=== PATIENT | female | born 1965 | race Caucasian/White ===

== ENCOUNTER 2024-06-28 09:35 | Emergency (ER) | payer BC, OTHER ==
[~2024-06-28] VITALS: Ht 165.1 cm; Wt 96.9 kg
[2024-06-28 11:42] VITALS: BP 159/61; TEMP 96; O2SAT 98
[2024-06-28 11:59] LABS: KETONE, URINE AUTO RFX NEGATIVE (NEGATIVE); LEUKOCYTE ESTERASE UR AUTO RFX NEGATIVE (NEGATIVE); MUCUS, URINE RFX SMALL (NEGATIVE); NITRITE, URINE AUTO RFX NEGATIVE (NEGATIVE); RBC, URINE AUTO RFX 38 /HPF (0-3); SQUAM EPITHELIAL CELL UR AURFX 2 /HPF (0-6); WBC, URINE AUTO RFX 1 /HPF (0-3)
== END 2024-06-28 11:47 | disposition home or self-care (01) ==
LOC: EDBD 09:35 → M ED 09:35
DX: R10.9 Unspecified abdominal pain (principal); Z87.442 Personal history of urinary calculi